=== PATIENT | female | born 1990 | race Caucasian/White ===

== ENCOUNTER 2016-08-15 11:37 | Inpatient (IN) | payer BC ==
[~2016-08-15] VITALS: Ht 152.4 cm; Wt 67.1 kg
[2016-08-15] VITALS (12 sets, daily range): BP systolic 98–139; BP diastolic 62–86
[2016-08-15] MEDS ORDERED: PRENATAL TABLE1 EAC3 PO (12:23)
[2016-08-15 13:08] LABS: EOSINOPHIL (%) 0.2 % (0-5); HEMATOCRIT 31.6 % (36.0-46.0); IMMATURE GRANULOCYTE (%) 0.8 % (0.0-0.7); IMMATURE GRANULOCYTE COUNT 0.1 K/uL; LYMPHOCYTE COUNT 1.4 K/uL (1.0-2.8); MCH 28.3 PG (29.0-34.0); MCHC 32.9 G/DL (30.0-36.0); MCV 86.1 FL (83-99); MEAN PLAT.VOLUME 9.7 uM^3 (9.5-12.4); MONOCYTE (%) 7.1 % (3-12); MONOCYTE COUNT 0.7 K/uL (0-0.8); NEUTROPHIL (%) 78.7 % (45-76); NEUTROPHIL COUNT 8.1 K/uL (1.8-6.4); PLATELET COUNT 182 K/uL (156-360); RBC DIS.WIDTH-CV 13.2 % (11.8-14.6); RBC DIS.WIDTH-SD 41.2 % (39-53); RED BLOOD COUNT 3.67 M/uL (3.80-5.20); WHITE BLOOD COUNT 10.3 K/uL (4.1-10.2)
[2016-08-15 13:26] LABS: ANION GAP 7 MEQ/L (2-14); CHLORIDE 107 MEQ/L (99-109); SAMPLE HEMOLYSIS CHECK 0; SAMPLE ICTERIC CHECK 0; SAMPLE LIPEMIA CHECK 0; SODIUM 136 MEQ/L (136-147); TOTAL BILIRUBIN 0.2 MG/DL (0.0-1.0)
[2016-08-15 13:32] LABS: ALKALINE PHOSPHATASE 154 IU/L (3-129); GFR ESTIMATE (CALCULATED) > 59 mL/min/; GLUCOSE 84 mg/dL (70-99); UREA NITROGEN (BUN) 8 mg/dL (9-23)
[2016-08-16] VITALS (23 sets, daily range): BP systolic 105–124; BP diastolic 62–83
[2016-08-17] VITALS (10 sets, daily range): BP systolic 108–128; BP diastolic 57–78
[2016-08-17] MEDS ORDERED: IBUPROFEN800 MG PO (02:05)
[2016-08-18 00:02] VITALS: BP 124/69
[2016-08-18 04:30] VITALS: BP 128/71
[2016-08-18 06:02] LABS: EOSINOPHIL (%) 1.2 % (0-5); EOSINOPHIL COUNT 0.1 K/uL (0-0.3); HEMATOCRIT 27.9 % (36.0-46.0); IMMATURE GRANULOCYTE (%) 0.5 % (0.0-0.7); IMMATURE GRANULOCYTE COUNT 0.1 K/uL; LYMPHOCYTE COUNT 1.9 K/uL (1.0-2.8); MCH 28.7 PG (29.0-34.0); MCV 86.9 FL (83-99); MONOCYTE (%) 7.6 % (3-12); MONOCYTE COUNT 0.8 K/uL (0-0.8); NEUTROPHIL (%) 73.7 % (45-76); NEUTROPHIL COUNT 8.2 K/uL (1.8-6.4); PLATELET COUNT 150 K/uL (156-360); RBC DIS.WIDTH-CV 13.5 % (11.8-14.6); RBC DIS.WIDTH-SD 42.9 % (39-53); RED BLOOD COUNT 3.21 M/uL (3.80-5.20); WHITE BLOOD COUNT 11.1 K/uL (4.1-10.2)
[2016-08-18 08:28] VITALS: BP 114/67
[2016-08-18 11:59] VITALS: BP 123/75
[2016-08-18 14:52] VITALS: BP 129/65
[2016-08-18 20:45] VITALS: BP 124/73
[2016-08-19 00:48] VITALS: BP 109/67
[2016-08-19 08:15] VITALS: BP 110/74
== END 2016-08-19 12:46 | disposition home or self-care (01) | DRG 775 ==
LOC: LDRP-OP 11:37 → 2WEST 11:38
PROVIDERS: Midwife; Nurse Practitioner
DX: O70.0 First degree perineal laceration during delivery (principal); O13.4 Gestational [pregnancy-induced] hypertension without significant proteinuria, complicating childbirth; O99.824 Streptococcus B carrier state complicating childbirth; Z3A.38 38 weeks gestation of pregnancy; Z37.0 Single live birth
CPT/HCPCS: 80053; 85025; C1755; G0378; J2540; J3010; J7120; S0020